=== PATIENT | female | born 1960 | race Caucasian/White ===

== ENCOUNTER → 2025-03-21 23:16 | Outpatient (BNV) | payer OTHER, SELFPAY | PROVIDERS: Emergency Provider Emergency Medicine Emergency Medical Services; PCP Internal Medicine; Visit Provider Internal Medicine Cardiovascular Disease | DX: Z13.6 Encounter for screening for cardiovascular disorders (principal) | CPT/HCPCS: 93010 ==

== ENCOUNTER 2025-03-26 09:06 | Outpatient (BNV) | payer OTHER, SELFPAY | END 2025-04-20 14:40 | PROVIDERS: Admitting Provider Nurse Practitioner Psychiatric/Mental Health; Emergency Provider Emergency Medicine Emergency Medical Services; PCP Internal Medicine; Visit Provider Radiology Diagnostic Radiology | DX: R09.89 Other specified symptoms and signs involving the circulatory and respiratory systems (principal) | CPT/HCPCS: 71046 ==

== ENCOUNTER 2025-03-26 09:06 | Outpatient (BNV) | payer OTHER, SELFPAY | END 2025-04-24 19:38 | PROVIDERS: Admitting Provider Nurse Practitioner Psychiatric/Mental Health; Emergency Provider Emergency Medicine Emergency Medical Services; PCP Internal Medicine; Visit Provider Radiology Diagnostic Radiology | DX: N20.0 Calculus of kidney (principal) | CPT/HCPCS: 76775 ==

== ENCOUNTER 2025-03-26 09:06 | Outpatient (BNV) | payer OTHER, SELFPAY | END 2025-04-25 19:38 | PROVIDERS: Admitting Provider Nurse Practitioner Psychiatric/Mental Health; Emergency Provider Emergency Medicine Emergency Medical Services; PCP Internal Medicine; Visit Provider Radiology Diagnostic Radiology | DX: R63.4 Abnormal weight loss (principal) | CPT/HCPCS: 74177 ==

== ENCOUNTER 2025-03-26 09:06 | Outpatient (BNV) | payer OTHER, SELFPAY | END 2025-05-11 17:56 | PROVIDERS: Admitting Provider Nurse Practitioner Psychiatric/Mental Health; Emergency Provider Emergency Medicine Emergency Medical Services; PCP Internal Medicine; Visit Provider Radiology Diagnostic Radiology | DX: K59.00 Constipation, unspecified (principal) | CPT/HCPCS: 74018 ==

== ENCOUNTER → 2025-03-26 09:06 | Outpatient (BNV) | payer OTHER, SELFPAY | PROVIDERS: Admitting Provider Nurse Practitioner Psychiatric/Mental Health; Emergency Provider Emergency Medicine Emergency Medical Services; PCP Internal Medicine; Visit Provider Nurse Practitioner Psychiatric/Mental Health | DX: F31.81 Bipolar II disorder (principal); R45.850 Homicidal ideations; F41.1 Generalized anxiety disorder; I10 Essential (primary) hypertension; N39.0 Urinary tract infection, site not specified | CPT/HCPCS: 99231; 99232 ==

== ENCOUNTER → 2025-03-26 09:06 | Outpatient (BNV) | payer OTHER, SELFPAY | PROVIDERS: Admitting Provider Nurse Practitioner Psychiatric/Mental Health; Emergency Provider Emergency Medicine Emergency Medical Services; PCP Internal Medicine; Visit Provider Nurse Practitioner Family | DX: I10 Essential (primary) hypertension (principal) | CPT/HCPCS: 99221; 99231 ==

== ENCOUNTER → 2025-03-26 09:06 | Outpatient (BNV) | payer OTHER, SELFPAY | PROVIDERS: Admitting Provider Nurse Practitioner Psychiatric/Mental Health; Emergency Provider Emergency Medicine Emergency Medical Services; PCP Internal Medicine; Visit Provider Internal Medicine Gastroenterology | DX: R62.7 Adult failure to thrive (principal) | CPT/HCPCS: 99222 ==

== ENCOUNTER → 2025-03-26 09:06 | Outpatient (BNV) | payer OTHER, SELFPAY | PROVIDERS: Admitting Provider Nurse Practitioner Psychiatric/Mental Health; Emergency Provider Emergency Medicine Emergency Medical Services; PCP Internal Medicine; Visit Provider Student in an Organized Health Care Education/Training Program | DX: F84.0 Autistic disorder (principal); F31.81 Bipolar II disorder; F41.1 Generalized anxiety disorder; R46.89 Other symptoms and signs involving appearance and behavior; F23 Brief psychotic disorder; L60.2 Onychogryphosis | CPT/HCPCS: 99222 ==

== ENCOUNTER → 2025-03-26 09:06 | Outpatient (BNV) | payer OTHER, SELFPAY | PROVIDERS: Admitting Provider Nurse Practitioner Psychiatric/Mental Health; Emergency Provider Emergency Medicine Emergency Medical Services; PCP Internal Medicine; Visit Provider Internal Medicine Critical Care Medicine | DX: N17.9 Acute kidney failure, unspecified (principal); I10 Essential (primary) hypertension | CPT/HCPCS: 99222 ==

== ENCOUNTER → 2025-05-02 08:34 | Outpatient (BNV) | payer OTHER, SELFPAY | PROVIDERS: PCP Internal Medicine; Visit Provider Internal Medicine Gastroenterology | DX: R63.4 Abnormal weight loss (principal); K21.00 Gastro-esophageal reflux disease with esophagitis, without bleeding; K29.70 Gastritis, unspecified, without bleeding | CPT/HCPCS: 43239 ==

== ENCOUNTER → 2025-05-02 08:34 | Day surgery (SDC) | payer OTHER, SELFPAY ==
[2025-05-02 08:41] VITALS: BP 103/59; PULSE 94; RESP 16; TEMP 36.6; O2SAT 95
[2025-05-02 08:43] VITALS: BMI 23.4
[2025-05-02] MEDS: Lactated Ringers 1,000 ML 100 ML IVCONT (09:07)
--- NOTE | 2025-05-02 09:12 | MHC.SHP ---
Pre-Procedural Eval Section A - 24 Hr Update-Section A only Date of Service: 05/02/25 The patient is an INPATIENT: Yes The patient has been examined within 24 hours of the surgical procedure. The History & Physical has been completed within 30 days and I have reviewed it.: Yes Section B - Complete if H&P > 30 days Chief Complaint: gerd,Adult failure to thrive Allergies: Allergies Allergy/AdvReac Type Severity Reaction Status Date / Time Penicillins Allergy Unknown Verified 05/02/25 08:46 Plan Diagnosis/Plan: Unchanged I have reviewed the history and physical and performed a pertinent physical examination on my patient. No changes have occurred unless specified. Time Spent With Patient Time: Total time managing care of this patient today ____ minutes.
--- NOTE | 2025-05-02 09:17 | HO.ANESPROP2 ---
Documented by User: Lorenza Lo NP 05/01/25 14:14 HPI - Anesthesia Eval Consult details Narrative: 64 yr old female for Upper Endoscopy and Colonoscopy Current admitted under geripsych JOSE MANUEL 2/2 failure to thrive PMFSH Active Problems Active Problems: All Active Problems (Updated 04/25/25 @ 12:39 by Quan Barnett MD) Failure to thrive in adult (Acute) JOSE MANUEL (acute kidney injury) (Acute) Chest congestion (Acute) UTI (urinary tract infection) (Acute) Bipolar II disorder (Acute) HTN (hypertension) (Acute) JEN (generalized anxiety disorder) (Acute) Bedbug bite (Acute) Aggressive behavior of adult (Acute) Bipolar disorder (Acute) Autism (Acute) Homicidal ideation (Acute) Acute psychosis (Acute) Past Medical History Medical History (Updated 05/02/25 @ 08:46 by Chelsey Gonzlaez RN) Anxiety and depression Bipolar disease, chronic HTN (hypertension) Surgical History Surgical History (Updated 05/02/25 @ 08:46 by Chelsey Gonzalez RN) H/O colonoscopy Social History Social History Household Members: Other Household Members Other:: was living with mother Housing: Homeless Do you presently have visiting nurse or other home services: No Comment: 5 minute checks Patient Tobacco Use Status: Never used Tobacco e-Cigarette/Vaping Use: Never Used Use of substances other than those prescribed or required for medical reasons: No Are you DNR?: No Advance Directives: No Advance Directives Information Provided: Yes service: No Sexual orientation: Straight/Heterosexual Meds Allergies Allergy/AdvReac Type Severity Reaction Status Date / Time Penicillins Allergy Unknown Verified 05/02/25 08:46 Home Medications ?Medication ?Instructions ?Recorded ?Confirmed ?Last Taken ?Type hydroxyzine pamoate 50 mg capsule 50 mg PO Q4H PRN Anxiety 03/22/25 05/02/25 3 Days Ago History ~03/19/25 lorazepam 0.5 mg tablet 0.5 mg PO BID PRN Anxiety 03/22/25 05/02/25 3 Days Ago History ~03/19/25 metoprolol succinate 25 mg 25 mg PO DAILY 03/22/25 05/02/25 Unknown History tablet,extended release 24 hr venlafaxine 75 mg capsule,extended 75 mg PO DAILY 03/25/25 05/02/25 Unknown History release 24 hr Exam Pertinent Lab Results Pertinent Lab Results: Laboratory Tests 03/21/25 04/25/25 18:23 07:29 WBC 9.0 RBC 5.34 Hgb 13.9 Hct 44.0 Plt Count 450 H Sodium 138 Potassium 4.1 Chloride 109 H Carbon Dioxide 20 L BUN 14 Creatinine 1.32 Narrative Narrative: EKG 03/2025 Vent. Rate : 93 BPM Atrial Rate : 93 BPM P-R Int : 170 ms QRS Dur : 84 ms QT Int : 378 ms P-R-T Axes : 74 56 74 degrees QTcB Int : 469 ms Normal sinus rhythm Normal ECG No previous ECGs available Documented by User: Chelsey Petersen DO 05/02/25 09:18 HPI - Anesthesia Eval Consult details Narrative: 64 yr old female for Upper Endoscopy Current admitted under geripsych JOSE MANUEL 2/2 failure to thrive [facility] Past Medical History Medical History (Updated 05/02/25 @ 08:46 by Chelsey Gonzalez RN) Anxiety and depression Bipolar disease, chronic HTN (hypertension) Family History Family history of problems with anesthesia: No Surgical History Surgical History (Updated 05/02/25 @ 08:46 by Chelsey Gonzalez RN) H/O colonoscopy History of Problems with Anesthesia: No Social History Social History Household Members: Other Household Members Other:: was living with mother Housing: Homeless Do you presently have visiting nurse or other home services: No Comment: 5 minute checks Patient Tobacco Use Status: Never used Tobacco e-Cigarette/Vaping Use: Never Used Use of substances other than those prescribed or required for medical reasons: No Are you DNR?: No Advance Directives: No Advance Directives Information Provided: Yes service: No Sexual orientation: Straight/Heterosexual Meds Allergies Allergy/AdvReac Type Severity Reaction Status Date / Time Penicillins Allergy Unknown Verified 05/02/25 08:46 Home Medications ?Medication ?Instructions ?Recorded ?Confirmed ?Last Taken ?Type hydroxyzine pamoate 50 mg capsule 50 mg PO Q4H PRN Anxiety 03/22/25 05/02/25 3 Days Ago History ~03/19/25 lorazepam 0.5 mg tablet 0.5 mg PO BID PRN Anxiety 03/22/25 05/02/25 3 Days Ago History ~03/19/25 metoprolol succinate 25 mg 25 mg PO DAILY 03/22/25 05/02/25 Unknown History tablet,extended release 24 hr venlafaxine 75 mg capsule,extended 75 mg PO DAILY 03/25/25 05/02/25 Unknown History release 24 hr Exam Exam Date and Time: 05/02/25 0915 Pertinent Lab Results Pertinent Lab Results: Laboratory Tests 03/21/25 04/25/25 18:23 07:29 WBC 9.0 RBC 5.34 Hgb 13.9 Hct 44.0 Plt Count 450 H Sodium 138 Potassium 4.1 Chloride 109 H Carbon Dioxide 20 L BUN 14 Creatinine 1.32 Height 5 ft 8 in Weight 69.853 kg Vital Signs Temperature 97.9 F 05/02/25 08:41 Pulse Rate 94 05/02/25 08:41 Respiratory Rate 16 05/02/25 08:41 Blood Pressure 103/59 L 05/02/25 08:41 Pulse Oximetry 95 05/02/25 08:41 Oxygen Delivery Method Room Air 05/02/25 08:41 Temperature 97.9 F 05/02/25 08:41 Pulse Rate 94 05/02/25 08:41 Respiratory Rate 16 05/02/25 08:41 Blood Pressure 103/59 L 05/02/25 08:41 Pulse Oximetry 95 05/02/25 08:41 Oxygen Delivery Method Room Air 05/02/25 08:41 Airway Mallampati Class: IV (small oral aperture) TM Dist: <=3cm Neck ROM: Limited Loose/Missing/Broken Teeth: No (patient denies any loose or broken teeth) Heart: S1S2 Lungs: CTAB Assessment and Plan Assessment Anesthesia Assessment: Anesthesia Plan Discussed and Chart Reviewed Final Anesthetic Review Family History of Problems with Anesthesia: No History of Problems with Anesthesia: No NPO: Yes ASA Class: III Final Preanesthetic Review: No Changes in Pt Med Stat, Meds/Allgs Chart Reviewed, Consent Obtained/Reviewed and Anes Risks/Benef Reviewed Patient Risk: Intermediate Procedure Risk: Low Anesthetic Plan Anesthetic Plan: MAC: and Agree w/ Assess. and Plan Disposition: Standard PACU
--- NOTE | 2025-05-02 09:35 | W.PM.OPN ---
Operative Note Operative Note Date of Service: 05/02/25 Narrative: Procedure Description: EGD Indication: Weight loss and GERD Anesthesia: MAC FLEXIBLE TRANSORAL UPPER GASTROINTESTINAL ENDOSCOPY UPPER ENDOSCOPY Consent: Indications for the procedure and potential complications of bleeding, perforation, reaction to medications and missed diagnosis were discussed with the patient and informed consent was obtained. Instrument: Olympus GIF H 190 J mid size upper endoscope Monitoring: Vital signs and clinical assessment, continuous EKG monitoring, Pulse oximetry, Carbon Dioxide monitoring and blood pressure monitoring were done throughout the procedure. Procedure: The patient was placed in the left lateral decubitis position and pre-procedure medications were administered and a bite block was placed. The endoscope was inserted into the mouth and advanced under direct vision to the third part of duodenum. A careful inspection was made as the upper endoscope was withdrawn including a retroflexed examination of the proximal stomach; Findings and interventions are described below. Findings: Larynx:normal Esophagus: GE junction at 38 cm, diaphragm hiatus at 40 cm, consistent with 2 cm hiatal hernia, with mild esophagitis noted at GEJ, bx taken Stomach: patchy streaky gastritis . Biopsies were obtained. Grade 2 flap valve on retroflexed examination of the cardia. 8-10 mm sessile polyp removed with cold snare from pre antral area Duodenum: Normal bulb and descending duodenum, bx taken Intervention: Biopsies as noted above, cold snare Impression/Findings: gastritis esophagitis haital hernia PLAN: colonsocopy tomorrow, keep on clears and try to complete prep also can give her zofran to reduce nausea from prep GERD precautions
[2025-05-02 09:40] VITALS: BP 92/49; PULSE 76; RESP 12; TEMP 36.6; O2SAT 98
[2025-05-02 09:45] VITALS: BP 94/57; PULSE 71; RESP 18; O2SAT 92
[2025-05-02 09:50] VITALS: BP 99/60; PULSE 71; RESP 12; O2SAT 98
[2025-05-02 09:55] VITALS: BP 94/64; PULSE 87; RESP 11; TEMP 36.4; O2SAT 98
[2025-05-02 09:59] VITALS: BP 133/68
== END ==
LOC: HO.SSS 08:35
PROVIDERS: PCP Internal Medicine; Visit Provider Internal Medicine Gastroenterology
PROC: (CPT 43239; principal; 2025-05-02 10:50)
DX: K21.9 Gastro-esophageal reflux disease without esophagitis (principal); R62.7 Adult failure to thrive; K29.70 Gastritis, unspecified, without bleeding; K44.9 Diaphragmatic hernia without obstruction or gangrene; K31.7 Polyp of stomach and duodenum
CPT/HCPCS: 43239; 43251; 88305; 88313; 88342; J0168; J2003; J2704

== ENCOUNTER → 2025-05-03 12:00 | Outpatient (BNV) | payer OTHER, SELFPAY | PROVIDERS: PCP Internal Medicine; Visit Provider Internal Medicine Gastroenterology | DX: R63.4 Abnormal weight loss (principal); R62.7 Adult failure to thrive; D12.2 Benign neoplasm of ascending colon; K64.0 First degree hemorrhoids; D12.4 Benign neoplasm of descending colon; D12.5 Benign neoplasm of sigmoid colon; D12.8 Benign neoplasm of rectum | CPT/HCPCS: 45380; 45385 ==

== ENCOUNTER → 2025-05-03 12:00 | Day surgery (SDC) | payer OTHER, SELFPAY ==
--- OUTSIDE RECORDS SUMMARY | 2025-05-03 08:05 | XMS_ITS | Clinical Summary ---
Author Organization [address] [facility] Address [address] [place] [address] Phone Care Team Providers Care Heat Welder [employer]astics Name Role Phone Irma Cleary Primary Care Provider Social History Tobacco Use Types Packs/Day Years Used Date Smoking Tobacco: Never Assessed Comments Unknown Sex and Gender Information Value Date Recorded Sex Assigned at Not on file Legal Sex Female 1:31 PM EDT Gender Identity Not on file Sexual Orientation Not on file Plan of Treatment Health Maintenance Due Date Last Done Comments Breast Cancer Screening 1961 Colorectal Cancer Screening: Colonoscopy 1961 DTaP,Tdap,and Td Vaccines (1 - Tdap) 1980 Cervical Cancer Screening: P ap Smear 1982 Pneumococcal Vaccine: 50+ Ye ars (1 of 1 - PCV) 10/30/2011 Zoster Vaccines (1 of 2) 10/30/2011 HIV Screening 01/08/2024 Hepatitis C Screening 01/08/2024 Medicare Annual Wellness Visit 01/08/2024 Social Influencers of Health Screening 01/08/2024 Depression Screening 06/08/2024 COVID-19 Vaccine (1 - 2024-2 6 season) 2025 Influenza Vaccine (#1) 2025 Cholesterol Screening (Lipid Panel) 11/24/2029 11/24/2024 RSV Immunization Adult Patie nts (1 - 1-dose 75+ series) 2036 HIB Vaccines Aged Out No longer eligi ble based on patient's age to complete this topic HPV Vaccines Aged Out No longer eligi ble based on patient's age to complete this topic Hepatitis A Vaccines Aged Out No long er eligible based on patient's age to complete this topic Hepatitis B Vaccines Aged Out No long er eligible based on patient's age to complete this topic IPV Vaccines Aged Out No longer eligi ble based on patient's age to complete this topic MMR Vaccines Aged Out No longer eligi ble based on patient's age to complete this topic Meningococcal ACWY Vaccine Aged Out N o longer eligible based on patient's age to complete this topic Meningococcal B Vaccine Aged Out No l onger eligible based on patient's age to complete this topic RSV Immunization Patients Un marbella 20 months Aged Out No longer eligible b ased on patient's age to complete this topic Varicella Vaccines Aged Out No longer eligible based on patient's age to complete this topic Procedures Procedure Name Priority Date/Time Associated Diagnosis Comments LIPID PANEL WITH REFLEX TO DIRECT LDL Routine 11/24/2024 7:00 AM EDT Other penitentiary (current) drug therapy from Last 3 Months or Most Recently Relevant to Health Maintenance Results * (ABNORMAL) Lipid panel with reflex to direct LDL (11/24/2024 7:00 AM EDT) Cholesterol 192 0 - 200 mg/dL LAB CHEMISTRY METHOD 11/24/2024 3:16 PM [facility] Triglycerides 97 0 - 150 mg/dL LAB CHEMISTRY METHOD 11/24/2024 3:16 PM [facility] HDL 71 >=40 mg/dL LAB CHEMISTRY METHOD 11/24/2024 3:16 PM [facility] LDL Calculated 102(H) 0 - 100 mg/dL LAB CHEMISTRY METHOD 11/24/2024 3:16 PM [facility] VLDL Cholesterol Nikhil 19.4 mg/dL LAB CHEMISTRY METHOD 11/24/2024 3:16 PM [facility] Non HDL Chol. (LDL+VLDL) 121 <145 mg/dL LAB CHEMISTRY METHOD 11/24/2024 3:16 PM [facility] Chol/HDL Ratio 2.7 0.0 - 4.4 LAB CHEMISTRY METHOD 11/24/2024 3:16 PM [facility] Blood Venous blood specimen / Unknown Venipuncture / Unknown 11/24/2024 7:00 AM EDT 11/24/2024 1:09 PM EDT us Pedrito Selby TODDLER TEACHER LAB BLOOD ORDERABLES Final Resu lt [facility] [address] [place] [address], from Last 3 Months or Most Recently Relevant to Health Maintenance Insurance [facility] MEDICARE Member Subscriber Plan / Payer (Ef fective 2016-Present) Name:Estela Bajwa Relation to Subscriber:Self Name:Estela Bajwa Payer ID:[id number] Group ID:Not on file Type:Not on file Address: [facility] [address] [phone] Care Teams Heat Welder Plastics Relationship Specialty Start Date End Date Irma Cleary PA [address] [place] [phone] PCP - General Physician Merchandise Distributor 10/12/24
--- OUTSIDE RECORDS SUMMARY | 2025-05-03 08:05 | XMS_ITS | Clinical Summary ---
Author Organization [facility] Address [address] [place] [address] Care Team Providers Care Vat Washer Name Role Phone Unavailable Primary Care Provider Unavailabl e Source Comments Please note that some or all of the patient's information could have additional privacy protections. State laws allow health care providers to render certain types of treatment to minors without parental consent. Please do not assume that this information can be shared solely by obtaining just the consent of the patient's parent/guardian. Please determine if all or part of the patient's care was rendered without parent/guardian involvement. And, if so, obtain the minor's consent prior to disclosure.[facility] Social History Tobacco Use Types Packs/Day Years Used Date Smoking Tobacco: Never Assessed Other Needs Answer Date Recorded Anything else about your child you'd like help w ith? Not on file 02/20/2023 Share good news about positive changes: Not on f ile 02/20/2023 Comments Unknown Sex and Gender Information Value Date Recorded Sex Assigned at Not on file Legal Sex Female 2:13 AM EST Gender Identity Not on file Sexual Orientation Not on file Plan of Treatment Health Maintenance Due Date Last Done Comments DTaP/TDAP/TD VACCINES (1 - Tdap) 1968 ADOLESCENT HIV SCREENING 1974 COVID-19 Vaccine (2023-2 5 season) 2025 INFLUENZA (#1) 2025 NIRSEVIMAB VACCINES UNDER 8 MONTHS Aged Out No longer eligible based on patient's age to complete this topic
--- OUTSIDE RECORDS SUMMARY | 2025-05-03 08:05 | XMS_ITS | Clinical Summary ---
Author Organization [facility] Address [address] [address] Phone Care Team Providers Care Orthopaedic Physician Assistant Name Role Phone Pcp, Unknown Primary Care Provider Unavailabl e Allergies Active Allergy Reactions Criticality Noted Date Comments Penicillin 01/15/2024 Medications No known medications Social History Tobacco Use Types Packs/Day Years Used Date Smoking Tobacco: Never Assessed Education Answer Date Recorded Are you interested in more education? Not on virgil e 01/15/2024 Are you concerned about learning? Not on file 01/15/2024 No 01/15/2024 No 01/15/2024 Digital Access Answer Date Recorded No 01/15/2024 No 01/15/2024 Reliable internet access at home? Not on file 01/15/2024 Device with a working camera? Not on file Intimate Partner Violence Answer Date R ecorded Are you denied basic needs s uch as food, clothing, or medical care? No 01/15/2024 In the past 12 months have y ou been in a relationship with a person who hurts, threatens, or tries to control you? No 01/15/2024 Are you denied basic needs s uch as food, clothing, or medical care? No 01/15/2024 In the past 12 months have y ou been in a relationship with a person who hurts, threatens, or tries to control you? No 01/15/2024 Comments Unknown Sex and Gender Information Value Date Recorded Sex Assigned at Not on file Legal Sex Female 1:52 PM EDT Gender Identity Not on file Sexual Orientation Not on file Last Filed Vital Signs Vital Sign Reading Time Taken Comments Blood Pressure 120/63 01/15/2024 4:17 PM EDT Pulse 89 01/15/2024 4:17 PM EDT Temperature 35.8 C (96.5 F) 01/15/2024 4:17 PM EDT Respiratory Rate 18 01/15/2024 4:17 PM EDT Oxygen Saturation 98% 01/15/2024 4:17 PM EDT Inhaled Oxygen Concentration - - Weight - - Height - - Body Mass Index - - Plan of Treatment Health Maintenance Due Date Last Done Comments LIPID PANEL 1961 DEPRESSION SCREENING 1973 SMOKING Hx and SMOKELESS TOBACCO SCREENING 1974 HEPATITIS C SCREENING 10/30/1979 HIV ONE-TIME SCREENING (18-65 YEARS) 10/30/1979 PAP SMEAR 1982 MAMMOGRAM 2001 COLOGUARD 2006 COLONOSCOPY 2006 COLORECTAL CANCER SCREENING 2006 FIT TEST 2006 FOBT 2006 SIGMOIDOSCOPY 2006 VIRTUAL COLONOSCOPY 2006 PNEUMOCOCCAL VACCINES (50+ years) (1 of 1 - PCV) 10/30/2011 ZOSTER VACCINES (1 of 2) 10/30/2011 INFLUENZA VACCINE (#1) 2025 , 03/28/2022, 02/20/2021, Additional history exists COVID-19 VACCINE (2024- season) 2025 03/16/2023, 03/28/2022, 05/23/2021, Additional history exists Adult Td,Tdap Booster 2031 10/28/2021 RSV VACCINE (1 - 1-dose 75+ series) 2036 HEPATITIS A VACCINES Aged Out No long er eligible based on patient's age to complete this topic HIB VACCINES Aged Out No longer eligi ble based on patient's age to complete this topic MENINGOCOCCAL VACCINES (ACWY) Aged Out No longer eligible based on patient's age to complete this topic MENINGOCOCCAL VACCINES (B) Aged Out N o longer eligible based on patient's age to complete this topic Medical Devices Not on file Insurance [facility] REPLACEMENT MEDICARE PART A & B [facility] MEDIC[facility]PLACEMENT MEDICARE PART A & B [facility] MEDICARE REPLACEMENT MEDICARE PART A & B [facility] MEDICARE [facility]PLACEMENT MEDICARE PART A & B [facility] MEDICARE REPLACEMENT MEDICARE PART A & B [facility] MEDIC[facility] REPLACEMENT MEDICARE PART A & B Care Teams Orthopaedic Physician Assistant Relationship Specialty Start Date End Date Pcp, Unknown PCP - General 01/15/24 Additional Source Comments The information contained in this document represents components of the legal health record. It is not the complete legal health record.[facility]
--- OUTSIDE RECORDS SUMMARY | 2025-05-03 08:05 | XMS_ITS | Encounter Summary ---
Author Organization [facility] Address [address] [place] [address] Care Team Providers Care Ski Tow Operator Name Role Phone Irma Cleary Primary Care Provider Encounter Details Date Type Department Care Team (Late st Contact Info) Description 11/24/[address] [facility] [address] [facility] [place] [address] Pedrito Selby NP [address] [place], [place] [id number] Other laborer marine terminal (current) drug therapy Social History Tobacco Use Types Packs/Day Years Used Date Smoking Tobacco: Never Assessed Comments Unknown Sex and Gender Information Value Date Recorded Sex Assigned at Not on file Legal Sex Female 1:31 PM EDT Gender Identity Not on file Sexual Orientation Not on file documented as of this encounter Plan of Treatment Not on file documented as of this encounter Procedures Procedure Name Priority Date/Time Associated Diagnosis Comments LIPID PANEL WITH REFLEX TO DIRECT LDL Routine 11/24/2024 7:00 AM EDT Other laborer marine terminal (current) drug therapy HEMOGLOBIN A1C Routine 11/24/2024 7:00 AM EDT Other residential (current) drug therapy COMPREHENSIVE METABOLIC PANEL Routine 11/24/2024 7:00 AM EDT Other laborer marine terminal (current) drug therapy documented in this encounter Results * (ABNORMAL) Lipid panel with reflex to direct LDL (11/24/2024 7:00 AM EDT) [facility] Signature Cholesterol 192 0 - 200 mg/dL LAB CHEMISTRY METHOD 11/24/2024 3:16 PM EDT [facility] Triglycerides 97 0 - 150 mg/dL LAB CHEMISTRY METHOD 11/24/2024 3:16 PM EDT [facility] HDL 71 >=40 mg/dL LAB CHEMISTRY METHOD 11/24/2024 3:16 PM EDT [facility] LDL Calculated 102(H) 0 - 100 mg/dL LAB CHEMISTRY METHOD 11/24/2024 3:16 PM EDT [facility] VLDL Cholesterol Nikhil 19.4 mg/dL LAB CHEMISTRY METHOD 11/24/2024 3:16 PM EDT [facility] Non HDL Chol. (LDL+VLDL) 121 <145 mg/dL LAB CHEMISTRY METHOD 11/24/2024 3:16 PM EDT [facility] Chol/HDL Ratio 2.7 0.0 - 4.4 LAB CHEMISTRY METHOD 11/24/2024 3:16 PM EDT [facility] Blood Venous blood specimen / Unknown Venipuncture / Unknown 11/24/2024 7:00 AM EDT 11/24/2024 1:09 PM EDT Pedrito Selby MANAGER HUMAN [employer]ITAL LAB BLOOD ORDERABLES Final Resu lt [facility] [address] [place] [address], * (ABNORMAL) Comprehensive metabolic panel (11/24/2024 7:00 AM EDT) Sodium 139 133 - 145 mmol/L LAB CHEMISTRY METHOD 11/24/2024 3:16 PM EDT [facility] Potassium 5.1 3.5 - 5.5 mmol/L LAB CHEMISTRY METHOD 11/24/2024 3:16 PM EDT [facility] Chloride 104 96 - 110 mmol/L LAB CHEMISTRY METHOD 11/24/2024 3:16 PM EDT [facility] CO2 27 21 - 32 mmol/L LAB CHEMISTRY METHOD 11/24/2024 3:16 PM [facility] Anion Gap 8 3 - 11 LAB CHEMISTRY METHOD 11/24/2024 3:16 PM [facility] Glucose 84 70 - 100 mg/dL LAB CHEMISTRY METHOD 11/24/2024 3:16 PM [facility] BUN 20 5 - 25 mg/dL LAB CHEMISTRY METHOD 11/24/2024 3:16 PM [facility] Creatinine 1.03 0.50 - 1.10 mg/dL LAB CHEMISTRY METHOD 11/24/2024 3:16 PM [facility] eGFR 61 >=60 mL/min/1. 73m2 LAB CHEMISTRY METHOD 11/24/2024 3:16 PM [facility] Comment:Calculation based on the Chronic Kidney Disease Epidemiology Collaboration (CKD-EPI) equation refit without adjustment for race. BUN/Creatinine Ratio 19.4 LAB CHEMISTRY METHOD 11/24/2024 3:16 PM [facility] Calcium 9.1 8.5 - 10.5 mg/dL LAB CHEMISTRY METHOD 11/24/2024 3:16 PM [facility] AST (SGOT) 23 10 - 42 unit/L LAB CHEMISTRY METHOD 11/24/2024 3:16 PM [facility] ALT (SGPT) 17 10 - 60 unit/L LAB CHEMISTRY METHOD 11/24/2024 3:16 PM [facility] Alkaline Phosphatase 113 42 - 121 unit/L LAB CHEMISTRY METHOD 11/24/2024 3:16 PM [facility] Total Protein 7.5 6.0 - 8.0 g/dL LAB CHEMISTRY METHOD 11/24/2024 3:16 PM [facility] Albumin 3.1(L) 3.2 - 5.0 g/dL LAB CHEMISTRY METHOD 11/24/2024 3:16 PM [facility] Total Bilirubin 0.3 0.0 - 1.4 mg/dL LAB CHEMISTRY METHOD 11/24/2024 3:16 PM EDT [facility] Blood Venous blood specimen / Unknown Venipuncture / Unknown 11/24/2024 7:00 AM EDT 11/24/2024 1:09 PM EDT Pedrito Selby MANAGER HUMAN [employer] LAB BLOOD ORDERABLES Final Resu lt Performing Organization Address City/[facility]/ZIP Co de Phone Number [facility] [address] [place] [address], [place] [phone] * Hemoglobin A1c (11/24/2024 7:00 AM EDT) Hemoglobin A1C 5.8 <6.5 % LAB CHEMISTRY METHOD 11/24/2024 8:37 PM EDT [facility] Mean Bld Glu Estim. 120 mg/dL LAB CHEMISTRY METHOD 11/24/2024 8:37 PM EDT [facility] Blood Venous blood specimen / Unknown Venipuncture / Unknown 11/24/2024 7:00 AM EDT 11/24/2024 1:09 PM EDT us Pedrito Selby NP LAB BLOOD ORDERABLES Final Resu lt Performing Organization Address City/[facility]/ZIP Co de Phone Number [facility] [address] [place] [address], [place] [phone] documented in this encounter Visit Diagnoses Diagnosis Other residential (current) drug therapy documented in this encounter Care Teams Ski Tow Operator Relationship Specialty Start Date End Date Irma Cleary PA [address] [place] [phone] PCP - General Physician Leather Belt Maker 10/12/24 documented as of this encounter
[2025-05-03 12:07] VITALS: BP 117/66; PULSE 79; RESP 18; TEMP 36.4; O2SAT 96; BMI 27.1
--- NOTE | 2025-05-03 12:51 | MHC.SHP ---
Pre-Procedural Eval Section A - 24 Hr Update-Section A only Date of Service: 05/03/25 The patient is an INPATIENT: Yes The patient has been examined within 24 hours of the surgical procedure. The History & Physical has been completed within 30 days and I have reviewed it.: Yes Section B - Complete if H&P > 30 days Chief Complaint: Adult failure to thrive,gerd Allergies: Allergies Allergy/AdvReac Type Severity Reaction Status Date / Time Penicillins Allergy Unknown Verified 05/02/25 08:46 Plan Diagnosis/Plan: Unchanged I have reviewed the history and physical and performed a pertinent physical examination on my patient. No changes have occurred unless specified. Time Spent With Patient Time: Total time managing care of this patient today ____ minutes.
--- NOTE | 2025-05-03 12:56 | HO.ANESPROP2 ---
[facility] Active Problems Active Problems: All Active Problems Failure to thrive in adult (Acute) JOSE MANUEL (acute kidney injury) (Acute) Chest congestion (Acute) UTI (urinary tract infection) (Acute) Bipolar II disorder (Acute) HTN (hypertension) (Acute) JEN (generalized anxiety disorder) (Acute) Bedbug bite (Acute) Aggressive behavior of adult (Acute) Bipolar disorder (Acute) Autism (Acute) Homicidal ideation (Acute) Acute psychosis (Acute) Past Medical History Medical History Anxiety and depression Bipolar disease, chronic HTN (hypertension) Family History Family history of problems with anesthesia: No Surgical History Surgical History H/O colonoscopy History of Problems with Anesthesia: No Social History Social History Household Members: Other Household Members Other:: was living with mother Housing: Homeless Do you presently have visiting nurse or other home services: No Comment: 5 minute checks Patient Tobacco Use Status: Never used Tobacco e-Cigarette/Vaping Use: Never Used Use of substances other than those prescribed or required for medical reasons: No Advance Directives: No Advance Directives Information Provided: Yes service: No Sexual orientation: Straight/Heterosexual Meds Allergies Allergy/AdvReac Type Severity Reaction Status Date / Time Penicillins Allergy Unknown Verified 05/02/25 08:46 Home Medications ?Medication ?Instructions ?Recorded ?Confirmed ?Last Taken ?Type hydroxyzine pamoate 50 mg capsule 50 mg PO Q4H PRN Anxiety 03/22/25 05/02/25 3 Days Ago History ~03/19/25 lorazepam 0.5 mg tablet 0.5 mg PO BID PRN Anxiety 03/22/25 05/02/25 3 Days Ago History ~03/19/25 metoprolol succinate 25 mg 25 mg PO DAILY 03/22/25 05/02/25 Unknown History tablet,extended release 24 hr venlafaxine 75 mg capsule,extended 75 mg PO DAILY 03/25/25 05/02/25 Unknown History release 24 hr Exam Height,Weight and Vital Signs: Height 5 ft 4 in Weight 71.668 kg Last Vital Signs Temp 97.6 F 05/03/25 12:07 Pulse 79 05/03/25 12:07 Resp 18 05/03/25 12:07 BP 117/66 05/03/25 12:07 Pulse Ox 96 05/03/25 12:07 O2 Del Method Room Air 05/03/25 12:07 Airway Mallampati Class: II TM Dist: >3cm Neck ROM: Full Loose/Missing/Broken Teeth: No Heart: RRR Lungs: CTA Assessment and Plan Assessment Anesthesia Assessment: Anesthesia Plan Discussed and Chart Reviewed Final Anesthetic Review Family History of Problems with Anesthesia: No History of Problems with Anesthesia: No NPO: Yes ASA Class: III Final Preanesthetic Review: Meds/Allgs Chart Reviewed, Consent Obtained/Reviewed and Anes Risks/Benef Reviewed Patient Risk: Intermediate Procedure Risk: Low Anesthetic Plan Anesthetic Plan: MAC: Disposition: Standard PACU
--- NOTE | 2025-05-03 13:41 | P.OPN-COLO_ITS ---
Colonoscopy Operative Note Operative Note Date of Service: 05/03/25 Narrative: Operative Information Procedure Description: Colonoscopy Indication: weight loss, FTT Anesthesia: MAC COLONOSCOPY Instrument: Olympus variable stiffness pediatric scope 190L Colonoscopy Monitoring: Vital signs and clinical assessment, continuous EKG monitoring, Pulse oximetry, Carbon Dioxide monitoring and blood pressure monitoring were done throughout the procedure. Colon withdrawal time was 25 minutes. Procedure: The patient was placed in the left lateral decubitis position and pre-procedure medications were administered. After a digital rectal examination of the ano-rectum, the video colonoscope was inserted into the rectum and advanced through the colon to the cecum/TI. The colonoscope was slowly withdrawn in a retrograde panoramic fashion and the colon mucosa was carefully examined including a retroflexed view of the rectum. Findings and interventions are described below. Procedure Difficulty: moderate pressure applied Findings: Terminal Ileum-normal, bx taken random right sided bx taken, Cecum:normal Ascending Colon: 5-6 mm sessile polyp removed with cold forceps Transverse Colon -normal Descending Colon: x 2 sessile polyps, one was about 10 mm and the other 12-14 mm. the larger one was injected with epinephrine and both removed with cold snare with one clip applied for hemostasis Sigmoid Colon:x 2 sessile polyps, one was about 10 mm and the other 14-15 mm. The larger one was injected with epinephrine and both removed with cold snare with two clips applied for hemostasis Rectum: Retroflexion with small internal hemorrhoids seen, grade I, x 2 sessile polyps removed 10-11 mm with cold snare Anorectum - normal Intervention: cold snare and epinpehrine injection, cold forceps Colon preparation: [place] Bowel Preparation Scale Right colon; 2 Transverse colon: 2 Left colon; 2 (0 = Unprepared colon segment with mucosa not seen due to solid stool that cannot be cleared. 1 = Portion of mucosa of the colon segment seen, but other areas of the colon segment not well seen due to staining, residual stool and/or opaque liquid. 2 = Minor amount of residual staining, small fragments of stool and/or opaque liquid, but mucosa of colon segment seen well. 3 = Entire mucosa of colon segment seen well with no residual staining, small fragments of stool or opaque liquid) Impression and Post Procedure Diagnosis: colon polyps internal hemorrhoids Plan: High fiber diet leaflet Avoid straining at stool, epsom salts and sitz bath, anusol supps or cream Repeat Colonoscopy in 6-12 months given polyp burden and size or earlier if clinically indicated Above findings were reviewed with the patient and relevant handouts were provided if indicated.
[2025-05-03 13:45] VITALS: BP 126/68; PULSE 71; RESP 18; TEMP 36.2; O2SAT 98
[2025-05-03 13:50] VITALS: BP 131/69; PULSE 71; RESP 18; O2SAT 100
[2025-05-03 14:00] VITALS: BP 135/71; PULSE 67; RESP 16; O2SAT 100
[2025-05-03 14:10] VITALS: BP 145/74; PULSE 67; RESP 16; TEMP 36.2; O2SAT 97
== END ==
LOC: HO.SSS 12:01
PROVIDERS: PCP Internal Medicine; Visit Provider Internal Medicine Gastroenterology
PROC: 0DJD8ZZ Inspection of Lower Intestinal Tract, Via Natural or Artificial Opening Endoscopic (ICD-10-PCS; CPT 45378; principal; 2025-05-03 14:00)
DX: R62.7 Adult failure to thrive (principal); K21.9 Gastro-esophageal reflux disease without esophagitis; R63.4 Abnormal weight loss; K64.0 First degree hemorrhoids; D12.7 Benign neoplasm of rectosigmoid junction; D12.2 Benign neoplasm of ascending colon; D12.4 Benign neoplasm of descending colon; D12.5 Benign neoplasm of sigmoid colon
CPT/HCPCS: 45380; 45385; 45381; 88305